=== PATIENT | female | born 1985 | race Caucasian/White ===

== ENCOUNTER 2018-09-23 22:34 | Emergency (ER) | payer OTHER ==
[2018-09-23 23:08] VITALS: BP 113/64; PULSE 104; TEMP 99.5; BMI 20.6
--- NOTE | 2018-09-23 23:16 | PDOC ---
History of Present Illness - General Chief Complaint: Pain Stated Complaint: side effects TO MEDS. Time Seen by Provider: 09/23/18 23:06 History Source: Patient - History of Present Illness Initial Comments: 09/23/18 23:12 32 year old female history of high inflammatory markers in blood work patient was started on Sulfasalazine started 2 weeks ago. patient now with side effects of the medication. currently with anorexia, NV, slight headache, chills. TMAx 102 today last dose tylenol 9.45 pm. Past History - Past Medical History Allergies/Adverse Reactions: Allergies Allergy/AdvReac Type Severity Reaction Status Date / Time naproxen Allergy Verified 09/23/18 22:55 Home Medications: Ambulatory Orders Sulfasalazine 500 mg PO BID 09/23/18 COPD: No Other medical history: RHeumatoid Arthritis - Suicide/Smoking/Psychosocial Hx Smoking History: Unknown if ever smoked Have you smoked in the past 12 months: No Information on smoking cessation initiated: No Hx Alcohol Use: No Drug/Substance Use Hx: No Substance Use Type: None Review of Systems - Review of Systems Able to Perform ROS?: Yes Is the patient limited Japanese proficient: No Constitutional: Yes: Fever HEENTM: No: Symptoms Reported, See HPI, Eye Pain, Blurred Vision, Tearing, Recent change in vision, Double Vision, Cataracts, Ear Pain, Ocular Prothesis, Ear Discharge, Nose Pain, Nose Congestion, Tinnitus, Nose Bleeding, Hearing Loss , Throat Pain, Throat Swelling, Mouth Pain, Dental Problems, Difficulty Swallowing, Mouth Swelling, Other ABD/GI: Yes: Nausea, Vomiting. No: Abdominal cramping : Yes: Frequency Integumentary: No: Symptoms Reported, See HPI, Bruising, Change in Color, Change in Hair/Nails, Dryness, Erythema, Flushing, Lesions, Lumps, Pallor, Pruritus, Rash, Sweating, Other *Physical Exam - Vital Signs Last Vital Signs Temp Pulse Resp BP Pulse Ox 99.5 F 104 H 16 113/64 100 09/23/18 22:52 09/23/18 22:52 09/23/18 22:52 09/23/18 22:52 09/23/18 22:52 - Physical Exam General Appearance: Yes: Appropriately Dressed HEENT: positive: Normal ENT Inspection Respiratory/Chest: positive: Lungs Clear, Normal Breath Sounds Cardiovascular: positive: Regular Rhythm, Regular Rate Gastrointestinal/Abdominal: positive: Normal Bowel Sounds, Tender (mild epigastric tenderness), Soft Musculoskeletal: positive: Normal Inspection. negative: CVA Tenderness Extremity: positive: Normal Capillary Refill, Normal Inspection, Normal Range of Motion Integumentary: positive: Normal Color, Dry, Warm Neurologic: positive: Fully Oriented, Alert, Normal Mood/Affect Medical Decision Making - Medical Decision Making 09/24/18 00:31 A: Viral syndrome versus medication reaction. : UA negative Urine negative Influenza negative Outpatient PCP and rheumatology follow-up as soon as possible reviewed with patient. *DC/Admit/Observation/Transfer Diagnosis at time of Disposition: Viral syndrome Medication reaction Qualifiers: Encounter type: initial encounter Qualified Code(s): T50.905A - Adverse effect of unspecified drugs, medicaments and biological substances, initial encounter - Discharge Dispostion Disposition: HOME - Referrals Referrals: Heidi Granado MD [Primary Care Provider] - Call tomorrow - Patient Instructions Printed Discharge Instructions: DI for Viral Syndrome Additional Instructions: it is important for your drink plenty of fluids. You may take Tylenol every 4 hours and ibuprofen every 6 hours. For fever Follow-up with your doctor as soon as possible you may stop SALSALAZINE seen until he spoke to the order management specialist - Post Discharge Activity Forms/Work/School Notes: Back to Work
[2018-09-23] MEDS ORDERED: IBUPROFEN 400 MG TABLET (FP) PO ONE ×2 (23:26→23:51)
[2018-09-24 00:03] LABS: EPI CELLS 0.5 /HPF (0-5/HPF); URINE APPEARANCE CLEAR; URINE BACTERIA 9.3 /hpf (NEGATIVE); URINE BILIRUBIN NEGATIVE (NEGATIVE); URINE CASTS 0 /lpf (0-8); URINE COLOR YELLOW; URINE GLUCOSE (UA) NEGATIVE (NEGATIVE); URINE KETONE NEGATIVE (NEGATIVE); URINE LEUK ESTERASE NEGATIVE (NEGATIVE); URINE NITRITE NEGATIVE (NEGATIVE); URINE PROTEIN NEGATIVE (NEGATIVE); URINE RBC 11 /hpf (0-4); URINE UROBILINOGEN 0.2 mg/dL (0.2-1.0); URINE WBC 0 /hpf (0-5)
[2018-09-24 00:04] LABS: HCG,QUALITATIVE URINE Negative
== END 2018-09-24 00:39 | disposition home or self-care (01) ==
LOC: JER 22:34
DX: T37.0X5A Adverse effect of sulfonamides, initial encounter (principal); B34.9 Viral infection, unspecified; M06.9 Rheumatoid arthritis, unspecified
CPT/HCPCS: 81003; 84703; 87804; 99281-25